=== PATIENT | male | born 1960 | race Caucasian/White ===

== ENCOUNTER 2019-06-17 13:29 | Emergency (ER) | payer OTHER ==
[~2019-06-17] VITALS: Ht 185.4 cm; Wt 86.2 kg
[~2019-06-17 13:29] MED LIST: KEFLEX500 MG PO; NORCO 5-325 TA1 EACH PO; OMEPRAZOLE40 MG PO
[2019-06-17] MEDS ORDERED: VIAGRA50 MG PO (13:41)
[2019-06-17] MEDS ORDERED: KEFLEX500 M1 PO (15:09)
[2019-06-17] MEDS ORDERED: HYDROCODON-ACE1 EAC7 PO (15:09)
[2019-06-17] MEDS ORDERED: ZOFRAN ODT4 MG PO (15:09)
[2019-06-17 15:21] VITALS: BP 144/87
== END 2019-06-17 15:23 | disposition home or self-care (01) ==
LOC: M.ERS 13:29
DX: S01.81XA Laceration without foreign body of other part of head, initial encounter (principal); S10.93XA Contusion of unspecified part of neck, initial encounter; K21.9 Gastro-esophageal reflux disease without esophagitis; Z96.643 Presence of artificial hip joint, bilateral; W11.XXXA Fall on and from ladder, initial encounter; Y93.89 Activity, other specified; Y92.89 Other specified places as the place of occurrence of the external cause; Y99.8 Other external cause status

== ENCOUNTER → 2020-01-04 | Outpatient (CLI) | payer OTHER ==
[~2020-01-04] MED LIST changes: +HYDROCODON-ACE1 EAC7 PO; +KEFLEX500 M1 PO; +VIAGRA50 MG PO; +ZOFRAN ODT4 MG PO
== END ==
LOC: M.LAB 13:21
PROVIDERS: ATTEND Orthopaedic Surgery
DX: Z01.812 Encounter for preprocedural laboratory examination (principal); Z20.828 Contact with and (suspected) exposure to other viral communicable diseases